=== PATIENT | female | born 1940 | race African-American/Black ===

== ENCOUNTER 2017-10-06 08:48 | Inpatient (IN) | payer OTHER ==
[2017-09-29 11:20] VITALS: BMI 26.6
--- NOTE | 2017-10-06 07:45 | HP ---
Admitting History and Physical - Admission Chief Complaint: left knee pain/osteoarthritis x years History of Present Illness: 77 year old female presents today in regard to her left knee. Longstanding history of left knee osteoarthritis. Patient complains of pain, limited ROM, difficulty ambulating and difficulty with activities of daily living. Patient has failed conservative treatment measures including PO medication, activity modification, injections and exercise program. At this point, patient would like to proceed with a left total knee arthroplasty. History Source: Patient - Past Medical History Cardiovascular: Yes: HTN, Hyperlipdemia ...: No - Past Surgical History Additional Past Surgical History: See written history & physical - Smoking History Smoking history: Never smoked Have you smoked in the past 12 months: No - Alcohol/Substance Use Hx Alcohol Use: Yes (SOCIALLY) Home Medications - Allergies Allergies/Adverse Reactions: Allergies Allergy/AdvReac Type Severity Reaction Status Date / Time latex Allergy Intermediate ITCHING Verified 09/29/17 12:01 AND PAIN - Home Medications Home Medications: Ambulatory Orders Aspirin Coated [Ecotrin -] 81 mg PO DAILY 09/29/17 Atorvastatin Ca [Lipitor] 10 mg PO DAILY 09/29/17 Losartan 50Mg/Hctz 12.5MG [Hyzaar -] 1 tab PO DAILY 09/29/17 Multivitamins [Tab-A-Vit -] 1 tab PO DAILY 09/29/17 Review of Systems - Review of Systems Musculoskeletal: reports: Crepitus (left knee), Decreased ROM (left knee), Joint Pain (left knee), Joint Swelling (left knee) Physical Examination Constitutional: Yes: Well Nourished, No Distress Eyes: Yes: Conjunctiva Clear HENT: Yes: Atraumatic, Normocephalic Neck: Yes: Supple Cardiovascular: Yes: Regular Rate and Rhythm Respiratory: Yes: Regular Gastrointestinal: Yes: Soft ...Rectal Exam: Yes: Deferred Musculoskeletal: Yes: Joint Stiffness (left knee), Joint Swelling (left knee) Assessment/Plan 77 year old female presents today in regard to her left knee. Longstanding history of left knee osteoarthritis. Patient complains of pain, limited ROM, difficulty ambulating and difficulty with activities of daily living. Patient has failed conservative treatment measures including PO medication, activity modification, injections and exercise program. Pros, cons, risks, benefits and alternatives of a left total knee arthroplasty were discussed with the patient in detail. Patient consents to proceed with a left total knee arthroplasty.
[~2017-10-06 08:48] MED LIST: CEFAZOLIN 1 GM/D5W 1 GRAM/50 ML BAG IVPB ONE; CELECOXIB 200 MG CAPSULE PO ONE; GABAPENTIN 300 MG CAPSULE (FP) PO ONE; PANTOPRAZOLE 40 MG TABLET (FP) PO ONE; ROPIVICAINE 0.2%/MORPH PF/KETOROLAC - 51ML DISP.SYRINGE IA ONE; TRANEXAMIC ACID 1000 MG/10 ML VIAL IVPUSH ONE; oxyCODONE HCL 10 MG SUSTAINED ACTING TABLET PO ONE
[2017-10-06] MEDS ORDERED: MIDAZOLAM HCL 2 MG/2 ML SINGLE DOSE VIAL ONE (12:03)
[2017-10-06] MEDS ORDERED: BUPIVACAINE HCL/PF (5 MG/ML) 30 ML VIAL IJ ONE (12:03)
[2017-10-06] MEDS ORDERED: DEXAMETHASONE SOD PHOSPHATE/PF 10 MG/ML SDV ONE (12:03)
[2017-10-06] MEDS ORDERED: BUPIVACAINE LIPOSOME/PF (EXPAREL) 266 MG/20 ML VIAL ONE (12:06)
[2017-10-06] MEDS ORDERED: VANCOMYCIN 1,000 MG VIAL (RESTRICTED TO ID ONLY) ONE (12:08)
[2017-10-06] MEDS ORDERED: TRANEXAMIC ACID 1000 MG/10 ML VIAL ONE ×2 (12:08→12:42)
[2017-10-06] MEDS ORDERED: ceFAZolin SODIUM 1 GM VIAL ONE ×2 (12:08→12:42)
[2017-10-06] MEDS ORDERED: ROPIVICAINE 0.2%/MORPH PF/KETOROLAC - 51ML DISP.SYRINGE IA ONE (12:09)
[2017-10-06] MEDS ORDERED: ONDANSETRON 4 MG/2 ML VIAL ONE (12:42)
[2017-10-06] MEDS ORDERED: DEXAMETHASONE SOD PHOSPHATE 4 MG/1 ML VIAL ONE (12:42)
[2017-10-06] MEDS ORDERED: ePHEDrine SULFATE 50 MG/1 ML AMPULE ONE (13:39)
[2017-10-06] MEDS ORDERED: PROPOFOL 20 ML ONE (14:15)
[2017-10-06] MEDS ORDERED: ONDANSETRON 4 MG/2 ML VIAL IVPUSH PRN ×2 (16:15→16:20)
[2017-10-06] MEDS ORDERED: oxyCODONE HCL 5 MG TABLET PO PRN ×2 (16:15)
[2017-10-06] MEDS ORDERED: ACETAMINOPHEN 325 MG TABLET (FP) PO SCH (16:15)
[2017-10-06] MEDS ORDERED: PROMETHAZINE HCL 25 MG/1 ML VIAL IVPB PRN (16:15)
[2017-10-06] MEDS ORDERED: LACTATED RINGERS SOLUTION 1,000 ML IV SCH ×2 (16:15→16:30)
--- NOTE | 2017-10-06 16:17 | OP ---
Operative Note - Note: Operative Date: 10/06/17 Pre-Operative Diagnosis: Left knee OA Operation: Left TKA Post-Operative Diagnosis: Same as Pre-op Surgeon: Jaun Alfaro Bobbin Collector: Radha Han Anesthesia: Spinal Estimated Blood Loss (mls): 50 Operative Report Dictated: Yes
[2017-10-06] MEDS ORDERED: MAGNESIUM HYDROX 2400MG/30ML ORAL SUSPENSION 30 ML CUP PO PRN (16:20)
[2017-10-06] MEDS ORDERED: MAG HYDROX/AL HYDROX/SIMETH 30 ML UNIT-DOSE CUP PO PRN (16:20)
[2017-10-06] MEDS ORDERED: ACETAMINOPHEN 1000 MG/100 ML VIAL (NON FORMULARY) IVPB ONE ×2 (16:22→16:50)
[2017-10-06] MEDS ORDERED: KETOROLAC TROMETHAMINE 30 MG/1 ML VIAL IVPUSH SCH (16:30)
[2017-10-06] MEDS ORDERED: traMADol HCL 50 MG TABLET PO SCH (16:30)
[2017-10-06] MEDS ORDERED: ACETAMINOPHEN INJECTION 100 ML IVPB ONE (16:46)
[2017-10-06] MEDS ORDERED: traMADol HCL 50 MG TABLET ONE (16:46)
[2017-10-06] MEDS ORDERED: KETOROLAC TROMETHAMINE 30 MG/1 ML VIAL ONE (16:47)
[2017-10-06] MEDS ORDERED: KETOROLAC TROMETHAMINE 15 MG/ML VIAL IVPUSH ONE (17:00)
[2017-10-06] MEDS ORDERED: traMADol HCL 50 MG TABLET PO ONE (17:05)
--- NOTE | 2017-10-06 17:10 | SPEC ---
DATE OF OPERATION: 10/06/2017 PREOPERATIVE DIAGNOSIS: Left knee osteoarthritis. POSTOPERATIVE DIAGNOSIS: Left knee osteoarthritis. PROCEDURE: Left total knee replacement. ATTENDING: Simon Hodgson M.D. CONDUIT CLEANER: Sophia Douglas ANESTHESIA: Spinal plus sedation. ESTIMATED BLOOD LOSS: 50 mL. COMPLICATIONS: None. SPECIMENS: Resected bone was sent for pathological analysis. DISPOSITION: The patient was sent to the PACU in stable condition. IMPLANTS USED: [employer] Triathlon size 3 femoral component, [employer] Triathlon size 3 tibial component, 11-mm posterior stabilized polyethylene component, 32-mm patellar component. INDICATION: This is a 77-year-old female who presented to the office complaining of severe left knee pain. This is a longstanding problem and she has seen other orthopedists in the past and was diagnosed with KL grade 4 severe osteoarthritis and was treated conservatively with injections, medications, and physical therapy. She continued to have severe pain despite this, and progressive decrease in her ambulatory function. She was therefore indicated for a left total knee replacement. The risks, benefits, and alternatives to the surgery were explained again to the patient in great detail, and she elected to proceed with the surgery. On the day of surgery, the patient was taken to the operating room and placed on the OR table. Spinal anesthesia was administered by the anesthesiologist. The patient was then positioned supine on the table and all bony prominences were padded. A nonsterile tourniquet was placed on the proximal thigh. The knee was then prepped and draped in the usual sterile fashion and intravenous antibiotics were given for infection prophylaxis. A surgical time-out was then performed with the team, and the patients identity, procedure, side, availability of implants, and the administration of antibiotics was confirmed. The leg was then elevated and exsanguinated, and the tourniquet was inflated. With the knee flexed, a midline incision was made and carried down through the subcutaneous fat to the underlying retinaculum. A medial parapatellar arthrotomy was performed. This was followed by a subperiosteal dissection of the tissue off the proximal, medial tibia. A portion of fat pad was removed from under the patellar tendon, and a small portion of fat was excised off the distal supracondylar femur. The knee was then flexed further and the anterior horn of the lateral meniscus was released from the midline. Next, the anterior and posterior cruciate ligaments were transected. Osteophytes were removed from both the femur and tibia. Grade 4 changes were noted diffusely throughout the knee. Hohmann retractors were then placed around the distal femur. The starting drill was used to enter the intramedullary canal. The starting point had been chosen by checking the radiographs and anatomy. Proper alignment and intramedullary placement was then confirmed by placing the long narrow sumeet into the femur. Next, the distal femoral cutting guide was adjusted to 6 degrees of valgus and pinned to the femur. The bone resection was assessed using an lora-wing. An approximately 10mm distal cut was made and the cut pieces measured. Once this was complete, the sizing guide was used to determine which size femoral component should be used. Next, the appropriately sized 4-in-1 cutting block was then placed at the correct amount of external rotation and the lora wing was used to assure that there would be no notching of the anterior cortex of the femur. Once this was done, Hohmann retractors were used to protect the medial and lateral collateral ligaments, and all appropriate bone cuts were made. Attention was then turned to the tibia. Hohmann retractors were used to translate the tibia anteriorly and protect the collateral ligaments. The medial and lateral menisci were removed. The extramedullary tibial alignment guide was then placed and adjusted for rotation, varus/valgus, and slope. The height of the cutting block was adjusted to the level of the desired bone resection and then pinned in place. The proximal tibia was then cut with a saw and the bone was removed and measured. Once this was completed, trial components were placed and the knee was taken through a full range of motion. Soft tissue balance was assessed in both flexion and extension and found to be appropriate. The knee was stable throughout the full range of motion. The knee was then put into extension and the patella everted. The synovium around the patella was circumscribed with electrocautery. A caliper was used to measure the patellar thickness and a saw was then used to resect the patella at the chondro-osseous junction. The cut surface was then sized and drilled for the appropriate patellar button, with care taken to medialize it. A trial patella was then placed and the knee was again taken through a full range of motion. The knee was found to have both good balance and good patellar tracking. All of the components were removed except the tibial base plate. The appropriate instrumentation was used to drill and punch the proximal tibia for the keel of the final component. All bony surfaces were then cleaned with pulsatile lavage and dried. Bone cement was then prepared on the back table, and final components were cemented in place in the usual fashion. Extruded cement was removed. The polyethylene trial was placed, the knee was put into extension, and axial pressure was applied for compression while the cement hardened. The patellar button was similarly cemented into place. Once the cement had hardened, the knee was taken through a full range of motion to assess stability, balance, and patellar tracking. This was found to be optimal and the trial polyethylene was exchanged for the appropriately sized real implant. The wound was then thoroughly irrigated with normal saline. No. 1 Polysorb and 0 VLoc 180 barbed sutures were used to close the arthrotomy. No. 1 Polysorb and 2-0 Polysorb sutures were used in the subcutaneous tissues. The skin was closed using both 3-0 VLoc 90 suture in a running subcuticular fashion and SwiftSet skin adhesive. Once this was completed a sterile Aquacel dressing and compressive Lc-wrap was applied. The tourniquet was then deflated and the patient was awakened and taken to the PACU in stable condition. ADDENDUM: After final implants were placed a 3-minute dilute Betadine lavage was performed according to the TODD protocol. Following this, the wound was irrigated with normal saline containing Ancef via pulsatile lavage. Wound closure was then begun. SIMON HODGSON M.D. [id number]
[2017-10-06] MEDS: CEFAZOLIN 1 GM/D5W 1 GM/50 ML BAG IVPB SCH (18:29)
[2017-10-06] MEDS: oxyCODONE HCL 10 MG SUSTAINED ACTING TABLET PO SCH (21:51)
[2017-10-06] MEDS: GABAPENTIN 300 MG CAPSULE (FP) PO SCH (21:52)
[2017-10-06] MEDS: ASCORBIC ACID 500 MG TABLET (FP) PO SCH (21:52)
[2017-10-06] MEDS: SENNOSIDES/DOCUSATE COMBO (SENNA PLUS) TABLET (UD) PO SCH (21:52)
[2017-10-06] MEDS: CELECOXIB 200 MG CAPSULE PO SCH (21:52)
[2017-10-06] MEDS: ACETAMINOPHEN 325 MG TABLET (FP) PO SCH (23:21)
[2017-10-06] MEDS: KETOROLAC TROMETHAMINE 30 MG/1 ML VIAL IVPUSH SCH (23:22)
[2017-10-06] MEDS: traMADol HCL 50 MG TABLET PO SCH (23:22)
[2017-10-07] MEDS ORDERED: DEXAMETHASONE SOD PHOSPHATE 10 MG/1 ML VIAL IVPB ONE (01:00)
[2017-10-07] MEDS: CEFAZOLIN 1 GM/D5W 1 GM/50 ML BAG IVPB SCH (01:54)
[2017-10-07] MEDS: ACETAMINOPHEN 325 MG TABLET (FP) PO SCH ×4 (04:41→22:40)
[2017-10-07] MEDS: traMADol HCL 50 MG TABLET PO SCH ×4 (04:42→22:39)
[2017-10-07] MEDS: KETOROLAC TROMETHAMINE 30 MG/1 ML VIAL IVPUSH SCH ×2 (04:43→12:05)
[2017-10-07] MEDS: ASPIRIN 325 MG TABLET PO SCH ×2 (08:00→08:35)
[2017-10-07 08:41] LABS: HEMATOCRIT 35.8 % (32.4-45.2); HEMOGLOBIN 12.4 GM/dl (10.7-15.3); MCHC 34.7 g/dl (32.0-36.0); MEAN CELL VOLUME 92.1 fl (80-96); PLATELET COUNT 205 K/MM3 (134-434); RBC 3.88 M/mm3 (3.60-5.2); RDW 12.5 % (11.6-15.6); WHITE BLOOD COUNT 12.1 K/mm3 (4.0-10.8)
[2017-10-07 09:10] LABS: ANION GAP 9 (8-16); BLOOD UREA NITROGEN 20 mg/dl (7-18); CALCIUM 8.6 mg/dl (8.4-10.2); CHLORIDE 100 mmol/L (98-107); CO2 24 mmol/L (22-28); CREATININE 0.7 mg/dl (0.6-1.3); GLUCOSE,RANDOM 133 mg/dl (74-106); POTASSIUM 4.4 mmol/L (3.5-5.1); SODIUM 133 mmol/L (136-145)
--- NOTE | 2017-10-07 09:27 | PN ---
Progress Note (short form) - Note Progress Note: Anesthesia Post op Pt seen and examined S:alert and awkae O; Vital Signs Temperature 98.0 F 10/07/17 05:53 Pulse Rate 67 10/07/17 05:53 Respiratory Rate 18 10/07/17 08:31 Blood Pressure 134/66 10/07/17 05:53 O2 Sat by Pulse Oximetry (%) 96 10/07/17 08:31 CBC, BMP 10/07/17 08:13 A/P s/p left TKR Doing well post op Continue current care Cas Martínez MD
[2017-10-07] MEDS ORDERED: MULTIVITAMINS (DAILY MVI) TABLET (FP) PO SCH (10:00)
[2017-10-07] MEDS: GABAPENTIN 300 MG CAPSULE (FP) PO SCH ×2 (10:27→22:39)
[2017-10-07] MEDS: MULTIVITAMINS (DAILY MVI) TABLET (FP) PO SCH (10:27)
[2017-10-07] MEDS: ASCORBIC ACID 500 MG TABLET (FP) PO SCH ×2 (10:28→22:39)
[2017-10-07] MEDS: LOSARTAN 50MG/HCTZ 12.5MG 1 TAB (FP) PO SCH (10:28)
[2017-10-07] MEDS: oxyCODONE HCL 10 MG SUSTAINED ACTING TABLET PO SCH ×2 (10:29→22:39)
[2017-10-07] MEDS: PANTOPRAZOLE 40 MG TABLET (FP) PO SCH (10:29)
[2017-10-07] MEDS: SENNOSIDES/DOCUSATE COMBO (SENNA PLUS) TABLET (UD) PO SCH ×2 (10:29→22:38)
[2017-10-07] MEDS: CELECOXIB 200 MG CAPSULE PO SCH ×2 (10:29→22:39)
[2017-10-07] MEDS ORDERED: ATORVASTATIN CA 10 MG TABLET (FP) PO SCH (22:00)
--- NOTE | 2017-10-07 23:22 | PN ---
Progress Note (short form) - Note Progress Note: Pt seen and examined. Doing well. AVSS Selected Entries 10/07/17 14:29 Temperature 98.3 F Pulse Rate 82 Respiratory 20 Rate Blood Pressure 146/60 Laboratory Tests 10/07/17 10/07/17 08:13 08:13 WBC 12.1 H Hgb 12.4 Hct 35.8 Plt Count 205 Sodium 133 L Potassium 4.4 Chloride 100 Carbon Dioxide 24 Anion Gap 9 BUN 20 H Creatinine 0.7 Random Glucose 133 H GenL NAD LLE: c/d/i, NVID A/P POD#1 s/p L TKA 1. PT/OOB 2. D/C home in AM after PT.
--- NOTE | 2017-10-07 23:28 | DS ---
Physical Examination Vital Signs: Vital Signs Temperature 98.3 F 10/07/17 14:29 Pulse Rate 82 10/07/17 14:29 Respiratory Rate 20 10/07/17 14:29 Blood Pressure 146/60 10/07/17 14:29 O2 Sat by Pulse Oximetry (%) 96 10/07/17 08:31 Labs: CBC, BMP 10/07/17 08:13 10/07/17 08:13 Discharge Summary Reason For Visit: LEFT KNEE OSTEOARTHRITIS Current Active Problems Osteoarthritis of left knee (Acute) Procedures: Principal: left TKA Hospital Course: Admitted for elective surgery. Procedure performed without complications. Pt received postoperative antibiotic prophylaxis and DVT ppx. Ambulated with physical therapy. Stable for discharge home with outpatient followup. Condition: Stable - Instructions Diet, Activity, Other Instructions: Dr Alfaro - Knee Replacement Instructions Keep the Aquacel dressing on until removed by Dr. Alfaro in 10-14 days - it is antibacterial and waterproof and you can shower with it on. Call the office for a follow-up appointment with Dr. Alfaro in 10-14 days. [phone] Take one Aspirin 325mg daily for 6 weeks to prevent blood clots in your legs. Take one Pantoprazole 40mg daily for 6 weeks to protect against heartburn and ulcers. Take Celebrex 200mg once daily for 30 days to reduce swelling and inflammation. Take Cephalexin (antibiotic) 3x/day for 10 days to help prevent skin infection. Take a multivitamin, stool softener, and extra vitamin C supplement daily. For pain: *Mild pain (1-3/10): Take 1 Tramadol tablet every 4 hours as needed. Moderate pain (4-6/10): Take 1 Tramadol tablet and 1 Percocet tablet every 4 hours as needed. Severe pain (7-10/10): Take 1 Tramadol tablet and 2 Percocet tablets every 4 hours as needed. Activity: You can put as much weight on the operative leg as you want. Right after you get home, there will be a physical therapist coming to your house to help you walk around and bend/straighten your knee. After your follow-up appointment, you will be sent for more intensive outpatient physical therapy which will include machines and equipment that the home therapist cannot bring to your house. Always use a walker or cane for balance and to prevent falls. Expect to see swelling/bruising from the knee all the way down to your toes. Wear the compression stocking on the right side during the day to minimize how much swelling there is in your foot/ankle. Don't wear the stocking at night. You don't have to wear a stocking on the left side. Disposition: [facility]/HOME HEALTH CARE - Home Medications Comprehensive Discharge Medication List: Ambulatory Orders Atorvastatin Ca [Lipitor] 10 mg PO DAILY 09/29/17 Losartan 50Mg/Hctz 12.5MG [Hyzaar -] 1 tab PO DAILY 09/29/17 Multivitamins [Multivit ([facility])] 1 tab PO DAILY 09/29/17 Ascorbic Acid [Vitamin C -] 500 mg PO BID tablet 10/07/17 Aspirin [ASA -] 325 mg PO DAILY@0800 tablet 10/07/17 Celecoxib [CeleBREX -] 200 mg PO DAILY #30 capsule 10/07/17 Cephalexin Monohydrate [Keflex -] 500 mg PO TID #30 capsule 10/07/17 Multivitamins [Multivit ([facility] Formul[facility])] 1 tab PO DAILY tab 10/07/17 Oxycodone HCl/Acetaminophen [Percocet 5-325 mg Tablet] 1 - 2 tab PO Q4H PRN #60 tablet MDD 8 10/07/17 Pantoprazole Sodium [Protonix -] 40 mg PO DAILY #40 tablet.ec 10/07/17 Sennosides/Docusate Sodium [Pericolace -] 1 tablet PO BID tablet 10/07/17 traMADol HCL [Ultram -] 50 mg PO Q4H PRN #90 tablet MDD 6 10/07/17
[2017-10-08] MEDS: traMADol HCL 50 MG TABLET PO SCH ×2 (04:52→13:00)
[2017-10-08] MEDS: ACETAMINOPHEN 325 MG TABLET (FP) PO SCH ×2 (04:52→13:00)
[2017-10-08 07:57] LABS: HEMATOCRIT 33.9 % (32.4-45.2); HEMOGLOBIN 11.3 GM/dl (10.7-15.3); MCH 31.2 pg (25.7-33.7); MCHC 33.3 g/dl (32.0-36.0); MEAN CELL VOLUME 93.7 fl (80-96); MEAN PLT VOLUME 9.1 fl (7.5-11.1); PLATELET COUNT 221 K/MM3 (134-434); RBC 3.62 M/mm3 (3.60-5.2); RDW 12.4 % (11.6-15.6); WHITE BLOOD COUNT 12.7 K/mm3 (4.0-10.8)
[2017-10-08] MEDS: PANTOPRAZOLE 40 MG TABLET (FP) PO SCH (09:54)
[2017-10-08] MEDS: CELECOXIB 200 MG CAPSULE PO SCH (09:54)
[2017-10-08] MEDS: GABAPENTIN 300 MG CAPSULE (FP) PO SCH (09:54)
[2017-10-08] MEDS: oxyCODONE HCL 10 MG SUSTAINED ACTING TABLET PO SCH (09:54)
[2017-10-08] MEDS: SENNOSIDES/DOCUSATE COMBO (SENNA PLUS) TABLET (UD) PO SCH (09:55)
[2017-10-08] MEDS: ASCORBIC ACID 500 MG TABLET (FP) PO SCH (09:55)
[2017-10-08] MEDS: LOSARTAN 50MG/HCTZ 12.5MG 1 TAB (FP) PO SCH (09:55)
[2017-10-08] MEDS: MULTIVITAMINS (DAILY MVI) TABLET (FP) PO SCH (09:55)
[2017-10-08 14:29] VITALS: BP 135/61; PULSE 67; TEMP 98.3
--- NOTE | 2017-10-11 15:58 | PATH ---
Surgical Pathology Report Patient Name: MARY JO INIGUEZ Med. Rec. #: [id number] /Age/Gender: 1940 (Age: 77) / F Account: [id number] Location: [facility] MED-SURG Taken: 10/06/2017 Received: 10/06/2017 Reported: 10/11/2017 Physicians: Jaun Alfaro M.D. Specimen(s) Received LEFT KNEE BONES Clinical History Left knee osteoarthritis Final Diagnosis KNEE BONES, LEFT, TOTAL KNEE REPLACEMENT: DEGENERATIVE JOINT DISEASE. Electronically Signed Tasha Vallecillo M.D. Gross Description Received in formalin, labeled "left knee bones" multiple fragments of cartilage-Bone consistent with portions of femoral and tibial condyle, with an aggregate measurement of 11 x 10.5 x 1.2 cm. The articular surfaces appear granular and show areas of eburnation. Window Glazier sections are submitted in one cassette after decalcification. AE/10/07/2017 ebram/10/07/2017
== END 2017-10-08 15:34 | disposition home health service (06) | DRG 470 ==
LOC: FM/S 08:48
PROVIDERS: ADMIT Student in an Organized Health Care Education/Training Program; ATTEND Student in an Organized Health Care Education/Training Program
PROC: 0SRD0J9 Replacement of Left Knee Joint with Synthetic Substitute, Cemented, Open Approach (ICD-10-PCS; principal; 2017-10-06 13:29)
DX: M17.12 Unilateral primary osteoarthritis, left knee (principal); I10 Essential (primary) hypertension; E78.5 Hyperlipidemia, unspecified
CPT/HCPCS: 36415; 73560-TC-LT-FY; 80048; 85027; 88304-TC; 88311-TC; 94010; 94760; 97116-GP; 97161-GP; J0131; J1100